=== PATIENT | male | born 2005 | race African-American/Black ===

== ENCOUNTER 2024-10-21 18:46 | Emergency (ER) | payer OTHER ==
[~2024-10-21] VITALS: Ht 177.8 cm; Wt 65.5 kg
[2024-10-21 18:51] VITALS: TEMP 98
[2024-10-21 20:43] LABS: APPEARANCE,URINE CLEAR (CLEAR); BILIRUBIN,URINE NEGATIVE (NEGATIVE); COLOR,URINE YELLOW (YELLOW); GLUCOSE, URINE (UA) NEGATIVE (NEGATIVE); KETONES,URINE TRACE mg/dL (NEGATIVE); LEUKOCYTE ESTERASE ,URINE MODERATE (NEGATIVE); NITRATE,URINE NEGATIVE (NEGATIVE); OCCULT BLOOD,URINE NEGATIVE (NEGATIVE); PROTEIN,URINE 30-70 mg/dL (NEGATIVE); SPECIFIC GRAVITIY, URINE 1.035 (1.003-1.030)
[2024-10-21 21:00] LABS: BACTERIA,URINE Rare /HPF (None Seen); RBC,URINE None Seen /HPF (0-2); SQUAMOUS EPITHELIAL CELL,UR None Seen /LPF (None Seen)
[2024-10-21] MEDS ORDERED: AZIT-164 PO (21:32)
[2024-10-21] MEDS: LIDOCAINE/PF 1% 2 ML VIAL IM ONE (21:57)
[2024-10-21] MEDS: CefTRIAXone SODIUM 1 GM/VIAL IM ONE (21:57)
[2024-10-21 22:30] VITALS: BP 123/63; PULSE 72; RESP 16; O2SAT 98
== END 2024-10-21 22:33 | disposition home or self-care (01) ==
LOC: EMS 18:46
DX: N34.2 Other urethritis (principal); J45.909 Unspecified asthma, uncomplicated
CPT/HCPCS: 99283; 81001; 87086; 87491; 87591; 96372; J0696; J3490